=== PATIENT | female | born 1970 | race Caucasian/White ===

== ENCOUNTER 2017-05-09 17:47 | Inpatient (IN) ==
[2017-05-09] MEDS ORDERED: NS 1,000 ML IV PRN (18:36)
[2017-05-09 19:02] LABS: BILIRUBIN URINE NEGATIVE (NEGATIVE); BLOOD URINE NEGATIVE (NEGATIVE); CLARITY CLEAR (CLEAR); COLOR YELLOW; GLUCOSE URINE NEGATIVE (NEGATIVE); LEUKOCYTES URINE 1+ (NEGATIVE); NITRITE URINE NEGATIVE (NEGATIVE); PH URINE 6.5; PROTEIN URINE 1+(30 mg/dL) mg/dL (NEGATIVE); SP GRAVITY URINE 1.005; UROBILINOGEN URINE NORMAL
[2017-05-09 19:04] LABS: UR AMPHETAMINES QUAL NONE DETECTED (NONE DETECT); UR BARBITUATES QUAL NONE DETECTED (NONE DETECT); UR BENZODIAZEPIN QUAL NONE DETECTED (NONE DETECT); UR CANNABINOIDS QUAL NONE DETECTED (NONE DETECT); UR COCAINE QUAL NONE DETECTED (NONE DETECT); UR MDMA QUAL NONE DETECTED (NONE DETECT); UR METHADONE QUAL NONE DETECTED (NONE DETECT); UR METHAMPHETAMINE QUAL NONE DETECTED (NONE DETECT); UR OPIATES QUAL NONE DETECTED (NONE DETECT); UR OXYCODONE QUAL NONE DETECTED (NONE DETECT); UR PCP QUAL NONE DETECTED (NONE DETECT); UR TCA QUAL PRESUMPTIVE POSITIVE (NONE DETECT)
[2017-05-09 19:15] LABS: URINE SOURCE CLEAN CATCH
[2017-05-09 19:17] LABS: URINE CULTURE PL NEEDED? YES; URINE EPITHELIAL CELLS <10 /HPF (<10); URINE RBC <10 /HPF (<10)
[2017-05-09 19:17] LABS: MANUAL DIFF NEEDED? NO
[2017-05-09 19:21] LABS: BASO% 1.7 % (0.0-0.8); HEMATOCRIT 31.8 % (37.0-47.0); HEMOGLOBIN 10.2 g/dL (12.0-16.0); LYMPH# 0.97 X1000 (1.2-3.4); MCH 28.7 PG (27-31); MCHC 32.1 g/dL (33-37); MCV 89.3 FL (81-99); MONO# 0.18 X1000 (0.11-0.59); MONO% 5.2 % (1.7-9.3); MPV 8.6 FL (7.4-10.4); NEUT% 65.1 % (42.2-75.2); PLT 265 X1000 (130-400); RBC 3.56 XMIL (4.2-5.4)
[2017-05-09 19:32] LABS: ALBUMIN 3.7 g/dL (3.5-5.0); CALCIUM 7.9 mg/dL (8.8-10.2); POTASSIUM 3.2 mmol/L (3.5-5.1); TOTAL BILIRUBIN 0.4 mg/dL (0.20-1.00); TOTAL PROTEIN 6.4 g/dL (6.3-8.3)
--- NOTE | 2017-05-09 20:34 | EKG Report ---
Test Performed on : 05/09/2017 8:26:22 PM Test Reason : CP Blood Pressure : / mmHG Vent. Rate : 096 BPM Atrial Rate : 096 BPM P-R Int : 106 ms QRS Dur : 078 ms QT Int : 380 ms P-R-T Axes : 078 097 064 degrees QTc Int : 480 ms Sinus rhythm. with short RI Rightward axis Septal infarct , age undetermined Abnormal ECG When compared with ECG of 05-APR-2017 17:28, No significant change was found Unconfirmed Result
[2017-05-09 21:07] LABS: FREE T4 0.57 ng/dL (0.93-1.70)
[2017-05-09] MEDS ORDERED: SODIUM CHLORIDE 0.9% INJ ONE (21:56)
[2017-05-09] MEDS ORDERED: SYNTHROID IV ONE (21:56)
[2017-05-09] MEDS ORDERED: ROCEPHIN 1 GM/NS 1 GM/50 ML IVPB IV ONE (21:57)
[2017-05-09] MEDS ORDERED: POTASSIUM CHLORIDE 10 MEQ in LR 1,000 ML IV ONE (21:57)
--- NOTE | 2017-05-09 22:05 | PROVIDER DOCUMENTATION ---
This chart was entered by Connie Monae Scribe, acting as scribe for Roddy Haney MD. HPI-General Adult - General Chief Complaint: Unresponsive Stated Complaint: UNRESPONSIVE IN A CAR Time Seen by Provider: 05/09/17 18:18 Source: patient, family Unable to obtain history due to:: altered Allergies/Adverse Reactions: Patient Allergies Allergy/AdvReac Type Severity Reaction Status Date / Time ketorolac tromethamine * Allergy Mild ABDOMINAL Verified 04/12/17 13:44 [From Toradol] PAIN; WAS TOLD COULD CAUSE SEIZURES tramadol HCl * [From Ultram] Allergy Mild ABDOMINAL Verified 04/12/17 13:44 PAIN; WAS TOLD COULD CAUSE SEIZURES propoxyphene Allergy Unknown NAUSEA; Verified 04/12/17 13:44 WAS TOLD COULD CAUSE SEIZURES Home Medications: Home Medication List Medication Instructions Recorded Confirmed Last Taken Type Hydrocodone/APAP 7.5 mg/325 mg 1 each PO Q6H PRN PRN #20 tablet 08/31/16 Unknown Rx [[place]-7.5] Clonazepam 0.5 mg PO DAILY 04/12/17 04/26/17 Unknown History Alprazolam [Xanax] 0.5 mg PO BID #7 tablet 04/26/17 Unknown Rx - History of Present Illness -Gen Adult Nature of Presenting Problems: 46 year old F presents to the ED via EMS. PT was found unresponsive in a car. Unknown how long pt had been in the car. PT was given 4 mg of Narcan [employer] and awoke. PT is alert to verbal stemuli. Pt denies taking any drugs and denies drinking. Review of Systems - Adult - REVIEW OF SYSTEMS - ADULT ROS:: unobtainable per condition Constitutional: reports: no symptoms reported Eyes: reports: no symptoms reported Ears, Nose, Mouth & Throat: reports: no symptoms reported Cardiovascular: reports: no symptoms reported Respiratory: reports: no symptoms reported Gastrointestinal: reports: no symptoms reported Genitourinary: reports: no symptoms reported Musculoskeletal: reports: no symptoms reported Integumentary: reports: no symptoms reported Neurological: reports: no symptoms reported Psychiatric: reports: no symptoms reported Endocrine: reports: no symptoms reported Hematologic/Lymphatic: reports: no symptoms reported Allergic/Immunologic: reports: no symptoms reported All Other Systems: Reviewed and Negative Past History - Adult - PAST MEDICAL HISTORY-ADULT Review of Records: reports: Nursing Assessment Review, Medications Reviewed Major Childhood Illnesses: reports: denies history Cardiovascular: reports: arrhythmia Respiratory: reports: asthma Gastrointestinal: reports: ulcer Obstetrical/Gynecological: reports: denies history Genitourinary: reports: kidney stones Musculoskeletal: reports: denies history Neurological: reports: 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) Endocrine/Immune: reports: hypoglycemia, thyroid disorder, other (factor 12 ) Other Conditions: reports: denies history - PRIOR SURGERIES/PROCEDURES Surgical/Procedure History: reports: hysterectomy, , gastric bypass ( also perforated ulcer repair), other (kidney stones) - PRIOR HOSPITALIZATIONS Prior Hospitalizations: reports: none - IMMUNIZATION STATUS Childhood Immunizations: See Nurse Assessment Flu Vaccine: See Nurse Assessment - FAMILY HISTORY Family History: reviewed, not pertinent - SOCIAL HISTORY Smoking: non-smoker Substance Use: none/never Alcohol Use Frequency: occasionally Physical Exam-General - PHYSICAL EXAM-ADULT Initial Vital Signs Reviewed: Yes - CONSTITUTIONAL General Appearance: slow to respond, other (awakes with verbal stemuli) - RESPIRATORY Respiratory: lungs clear, normal breath sounds - CARDIOVASCULAR Cardiovascular: normal peripheral pulses, regular rate, rhythm, no edema - GASTROINTESTINAL (ABDOMEN) Abdominal Exam: normal bowel sounds, soft - SKIN Integumentary: normal color, normal turgor, warm/dry Progress - PLAN OF CARE/RESULTS Progress/Plan/Lab Results: Vital Signs - 8 hr 05/09/17 17:49 Pulse Rate 105 H Respiratory Rate 20 Blood Pressure 134/100 O2 Sat by Pulse Oximetry 96 Result Diagrams: 05/09/17 19:00 05/09/17 19:00 - EKG 1 Time of EKG reading by physician:: 20:26 EKG Read and Signed by:: Roddy Haney EKG Interpretation (*Must complete 3 of following elements*): Abnormal Rate: 96 Rhythm: sinus rhythm with short NM [place]: right QRS: poor R wave progression - CONSULTS/PCP/HOSPITALIST Notification #1 *Consult/PCP/Hospitalist*: Dr. Eduardo(hospitalist) Time Discussed: 21:53 Consult Disposition: Admit Departure - Departure Date of Disposition Decision: 05/09/17 Time of Disposition Decision: 22:00 DIAGNOSIS: Hypothyroidism, postablative, Suicidal ideation Disposition: ADMITTED INPATIENT 09 Certified Medical Emergency: Emergent Condition: Serious Referrals and Follow-Ups: None,PCP [Primary Care Provider] - - Critical Care Note This patient required my direct & personal management of CC.: No This chart was documented by the indicated scribe, (Connie Monae Scribe) and accurately reflects the services I performed and decisions made by me, Roddy Haney MD, as attested by the provider's signature.
[2017-05-09] MEDS ORDERED: MOTRIN ONE (23:06)
[2017-05-09] MEDS: MOTRIN PO PRN (23:20)
[2017-05-10] MEDS: ZOFRAN IV PRN ×5 (00:04→20:22)
[2017-05-10] MEDS ORDERED: MOTRIN ONE (04:01)
[2017-05-10] MEDS: MOTRIN PO PRN (04:32)
[2017-05-10] MEDS ORDERED: MOTRIN PO PRN (06:19)
[2017-05-10] MEDS: SYNTHROID PO SCH (08:38)
[2017-05-10] MEDS: NORCO-7.5 PO PRN ×3 (08:38→21:00)
[2017-05-10] MEDS: XANAX PO SCH ×2 (08:38→22:03)
--- NOTE | 2017-05-10 15:07 | HISTORY AND PHYSICAL ---
CHIEF COMPLAINT: Unresponsive in the car. HISTORY OF PRESENT ILLNESS: This is a 46-year-old female who presented to the emergency room via EMS after being found sitting in a car unresponsive. It is unknown how long the patient had been there. Apparently EMS gave the patient 4 mg of Narcan and she was awake and alert to verbal stimuli on arrival to the emergency room. She did deny at that time taking any drugs or drinking any alcohol, although her blood alcohol was noted to be 333 on admission, and 3 hours later it was 277. Drug screen was positive for tricyclics. Apparently, according to the chart, the patient's mother informed Dr. Haney that the patient wanted to kill herself. Therefore Dr. Haney recommended an evaluation from [facility]. At the time of my exam, Ms. De Souza is alert, she is oriented, she is cooperative. She does speak of suicide, although she does not voice that in fact she is suicidal. In talking with the patient, she does not remember getting into her car, nor quite some time. She does not remember getting into her car. The patient was admitted to ICU for further evaluation and treatment for her safety. PAST MEDICAL HISTORY: 1. Narcotic substance abuse. 2. Encephalopathy. 3. Hypothyroidism. 4. Prior drug overdose, taking medications that were not hers. 5. Factor XII bleeding disorder. 6. History of perforated ulcer. 7. Depression. PAST SURGICAL HISTORY: Cholecystectomy, , hysterectomy, tonsillectomy, gastric bypass, and repair of perforated ulcer. SOCIAL HISTORY: She denies tobacco use. She does have alcohol and illicit drug use. ALLERGIES: Toradol and tramadol and propoxyphene which cause nausea and abdominal pain. HOME MEDICATIONS: Synthroid 75 mcg daily. Xanax 1 mg 3 times a day. Doxepin 25 mg 3 times a day. REVIEW OF SYSTEMS: Discussed with patient with pertinent positive being depression. She denies chest pain, syncope, dizziness, shortness of breath, cough, fever chills, PND, orthopnea, nausea, vomiting, diarrhea, constipation, black or bloody vomitus, black or bloody stools, hematuria, dysuria, frequency, urgency. PHYSICAL EXAMINATION: GENERAL: This is a 46-year-old female who is sitting in the bed, in no distress. VITAL SIGNS: Blood pressure is 146/88 with a heart rate of 84, respirations are 19, temperature is 99.0 degrees oral with room air saturations of 99%-100%. HEENT: Head is normocephalic, atraumatic. Pupils equal, round, react to light. EOMs are intact. Sclerae nonicteric. Mucous membranes are moist. NECK: Supple. Trachea midline. CARDIOVASCULAR: Regular rate and rhythm. S1 and S2 appreciated. PULMONARY: Breath sounds are clear with no increased work of breathing noted. Chest does rise and fall symmetrically with respiration. GASTROINTESTINAL: Abdomen is soft, nontender, nondistended, with bowel sounds in all 4 quadrants. BACK: No CVAT. No spine tenderness. MUSCULOSKELETAL: Good range of motion of joints. EXTREMITIES: No clubbing, cyanosis, or edema. Calves are nontender and pulses are palpable x4. NEUROLOGIC: She is alert and oriented x3. DIAGNOSTICS: WBC is 3.4, with hemoglobin 10.2, hematocrit 31.8, platelets of 265,000. Sodium is 147, potassium 3.2, BUN 11, creatinine 1, with a glucose of 102. AST is 45, ALT 39, and alkaline phosphatase 125. TSH is 24.8, with a free T4 of 0.5. Urinalysis is essentially negative. Urine drug screen is positive for tricyclic, with a blood alcohol of 333. ASSESSMENT AND PLAN: 1. Unresponsive. 2. Alcohol use and abuse. 3. Hypothyroid. 4. Hypokalemia. 5. Elevated liver function tests. 6. Questionable suicidal ideation. PLAN: She is being admitted to ICU. We will continue with suicide precautions. We will continue with IV hydration. We will continue with her home medications as appropriate. Urine culture is pending. She was given a dose of Rocephin in the emergency room. We will continue this. If urine culture returns positive antibiotics may be changed as appropriate to results. We will continue with neuro checks. Once she is medically clear we will call [facility] for evaluation. Further treatment pending hospital course. Dictated by FÉLIX Ferreira for Holger Eduardo MD cc: FÉLIX Ferreira MD
[2017-05-10] MEDS: ROCEPHIN 1 GM/NS 1 GM/50 ML IVPB IV SCH (22:04)
[2017-05-11] MEDS: NORCO-7.5 PO PRN ×4 (04:32→23:37)
[2017-05-11 06:26] LABS: HEMATOCRIT 29.4 % (37.0-47.0); HEMOGLOBIN 9.1 g/dL (12.0-16.0); MCH 28.2 PG (27-31); MPV 9.5 FL (7.4-10.4); RBC 3.23 XMIL (4.2-5.4)
[2017-05-11] MEDS: SYNTHROID PO SCH (06:31)
[2017-05-11 07:01] LABS: AGAP 10; ALBUMIN 3.2 g/dL (3.5-5.0); ALKALINE PHOSPHATASE 131 U/L (32-104); BUN 10 mg/dL (8-22); CALCIUM 8.1 mg/dL (8.8-10.2); CHLORIDE 105 mmol/L (98-107); COSMO 281; GOT 187 U/L (10-30); GPT 69 U/L (10-36); MAGNESIUM 1.8 mg/dL (1.5-2.7); POTASSIUM 2.9 mmol/L (3.5-5.1); SODIUM 142 mmol/L (136-145); TCO2 27 mmol/L (25-35); TOTAL PROTEIN 5.5 g/dL (6.3-8.3)
[2017-05-11] MEDS: ZOFRAN IV PRN ×3 (07:28→17:27)
[2017-05-11] MEDS ORDERED: KLOR-CON PO ONE (08:23)
[2017-05-11] MEDS: XANAX PO SCH ×2 (08:43→21:05)
--- NOTE | 2017-05-11 10:11 | PROGRESS NOTE ---
DATE: 05/11/2017 SUBJECTIVE: Patient without any complaints. States that she is actually feeling better today than she has been. Denies any chest pain, palpitations. Denies any fevers or chills. OBJECTIVE: Vital Signs: Reviewed. Temperature 97 degrees, pulse 86, respiratory rate 18, BP 160/85, saturation 99% on room air. General: Patient is awake, alert. Currently she is in no respiratory distress. She is pleasant to talk with. Neck: Supple. CV: Regular rate. Chest: Clear. Abdomen: Soft. Extremities: Moves all extremities. ASSESSMENT: 1. Acute hepatitis. AST and ALT both are mildly elevated from her admission. I expect this is more of a delayed alcohol affect than anything. We will continue to follow and recheck in the a.m. They actually both are less than where she has been in the past. 2. Hypokalemia. Will replace with p.o. and recheck. 3. Hypothyroidism. Will continue the elevated dose of Synthroid and will recheck in the a.m. She certainly physically appears to feel better. 4. Chronic depression. 5. Chronic alcohol use and abuse. Patient is stable. She has no signs withdrawal. 6. Hypokalemia, resolved. 7. Urinary tract infection. We will continue Rocephin until lab is able to delineate what the infection is. PLAN: We will continue as noted above. Replace potassium. Recheck in the a.m. We will move her to the floor. Further orders as needed. Hopefully home. cc: Holger Eduardo MD
[2017-05-11] MEDS: ROCEPHIN 1 GM/NS 1 GM/50 ML IVPB IV SCH (21:05)
[2017-05-11] MEDS: LACTULOSE PO SCH (21:05)
[2017-05-12] MEDS: PRILOSEC PO SCH (06:08)
[2017-05-12] MEDS: SYNTHROID PO SCH (06:08)
[2017-05-12] MEDS: NORCO-7.5 PO PRN ×3 (06:10→20:42)
[2017-05-12 06:35] LABS: HEMATOCRIT 28.7 % (37.0-47.0); HEMOGLOBIN 8.9 g/dL (12.0-16.0); MCV 90.3 FL (81-99); MPV 10.2 FL (7.4-10.4); RBC 3.18 XMIL (4.2-5.4)
[2017-05-12 06:49] LABS: AGAP 10; ALBUMIN 3.4 g/dL (3.5-5.0); ALKALINE PHOSPHATASE 122 U/L (32-104); BUN 10 mg/dL (8-22); CHLORIDE 105 mmol/L (98-107); COSMO 280; GOT 89 U/L (10-30); GPT 59 U/L (10-36); MAGNESIUM 1.7 mg/dL (1.5-2.7); POTASSIUM 3.4 mmol/L (3.5-5.1); SODIUM 141 mmol/L (136-145); TCO2 26 mmol/L (25-35); TOTAL PROTEIN 5.6 g/dL (6.3-8.3)
[2017-05-12] MEDS: ZOFRAN IV PRN ×2 (07:16→13:37)
[2017-05-12] MEDS ORDERED: SYNTHROID PO SCH (07:30)
[2017-05-12] MEDS: LEVAQUIN PO SCH (10:27)
[2017-05-12] MEDS: LACTULOSE PO SCH ×2 (10:27→20:31)
[2017-05-12] MEDS: XANAX PO SCH ×2 (10:28→20:31)
--- NOTE | 2017-05-12 15:19 | PROGRESS NOTE ---
DATE: 05/12/2017 SUBJECTIVE: The patient is complaining of aching to her back and abdomen. She denies any nausea, vomiting, shortness of breath, or issues. OBJECTIVE: Vital Signs: Blood pressure is 156/90, with a heart rate of 90. Respirations are 20. Temperature is 98.4 degrees, with room air saturation of 100%. Cardiovascular: Regular rate and rhythm. S1, S2 appreciated. Pulmonary: Breath sounds are clear, with no increased work of breathing noted. Gastrointestinal: Abdomen is soft, nontender, nondistended, with bowel sounds in all 4 quadrants. Extremities: No clubbing, cyanosis, or edema. Calves nontender. Pulses are palpable x4. Neurologic: She is alert orient x3, with cranial nerves 2-12 grossly intact. LABORATORY STUDIES: WBC is 3.3, with hemoglobin 8.9, hematocrit 28.7, and platelets of 162,000. Sodium is 141, potassium 3.4, BUN 10, creatinine 0.6, with blood sugars ranging from. 68-90. TSH is 42.69. ASSESSMENT AND PLAN: 1. Acute hepatitis. AST and ALT, as well as alkaline phosphatase, are decreasing. This is most likely a delayed alcohol effect. We will continue to follow and recheck her labs. These are actually less than they have been in the past. 2. Hypokalemia. Will trend labs and replete as appropriate. 3. Hypothyroidism. TSH has increased to 42.69. We will recheck this level and treat as appropriate with recheck level. 4. Chronic depression. Aware. 5. Chronic alcohol use and abuse. She is stable. She is showing no signs of withdrawal. 6. Urinary tract infection of Klebsiella, which is Levaquin susceptible, which we will continue. 7. Further orders as needed. Dictated by FÉLIX Ferreira for Holger Eduardo MD cc: FÉLIX Ferreira MD
[2017-05-13] MEDS: ZOFRAN IV PRN ×2 (01:53→08:18)
[2017-05-13] MEDS: NORCO-7.5 PO PRN ×2 (03:17→12:42)
[2017-05-13] MEDS: PRILOSEC PO SCH (06:13)
[2017-05-13 06:30] LABS: AGAP 9; ALBUMIN 3.3 g/dL (3.5-5.0); ALKALINE PHOSPHATASE 102 U/L (32-104); BUN 9 mg/dL (8-22); CALCIUM 7.8 mg/dL (8.8-10.2); CHLORIDE 106 mmol/L (98-107); COSMO 277; GOT 39 U/L (10-30); GPT 38 U/L (10-36); POTASSIUM 3.6 mmol/L (3.5-5.1); SODIUM 140 mmol/L (136-145); TCO2 26 mmol/L (25-35); TOTAL PROTEIN 5.4 g/dL (6.3-8.3)
[2017-05-13] MEDS: XANAX PO SCH (08:17)
[2017-05-13] MEDS: LEVAQUIN PO SCH (08:17)
[2017-05-13] MEDS: LACTULOSE PO SCH (08:25)
--- NOTE | 2017-05-13 09:28 | Diag Imaging Result Doc PS360 ---
EXAM: ABDOMEN/PELVIS W/PO AND IV CON INDICATION: Abd pain throughout TECHNIQUE: Dose reduction protocol was used. COMPARISON: 04/12/2017 FINDINGS: There has been a previous cholecystectomy. There is stable minimal intrahepatic and extrahepatic biliary dilatation that is assumed to be compensatory related to postcholecystectomy status. The liver is grossly unremarkable, otherwise. The spleen, adrenal glands, and pancreas are unremarkable. There are surgical staple lines associated with the stomach suggesting prior gastric bypass. There is bilateral nonobstructing nephrolithiasis. There is no hydronephrosis. The urinary bladder is partially distended and is grossly unremarkable, otherwise. The appendix is normal. There is trace nonspecific free fluid layering in the pelvis on the right, usually physiologic. There are a few small bowel loops that exhibit mild wall thickening in the lower abdomen and pelvis. This could represent mild infectious or inflammatory enteritis. There is no evidence of bowel obstruction. The remainder of the GI tract is grossly unremarkable. IMPRESSION: 1.Suggestion of minimal small bowel wall thickening at the lower abdomen and pelvis. Consider mild infectious or inflammatory enteritis. 2.Other incidental/nonacute findings detailed above.0 Electronically signed by Wale Castellano 05/13/2017 9:26 AM
[2017-05-13] MEDS ORDERED: [UNRECOGNIZED DRUG - OTHER] PR ONE (10:14)
[2017-05-13 15:16] VITALS: BP 145/85
--- NOTE | 2017-05-14 07:16 | DISCHARGE SUMMARY ---
ADMISSION DATE: 05/09/2017 DISCHARGE DATE: 05/13/2017 DIAGNOSES: 1. Unresponsive, resolved. 2. Alcohol use and abuse, aware. 3. Hypothyroid. 4. Hypokalemia, resolved. 5. Elevated liver function tests, resolved. 6. Chronic depression, aware. 7. Klebsiella urinary tract infection, currently on Levaquin. DIAGNOSTICS: On 05/12/2017, CT scan of the abdomen and pelvis revealed a suggestion of minimal small bowel wall thickening at the lower abdomen and pelvis. Consider mild infectious or inflammatory enteritis. She was also found to have some small nonobstructing nephrolithiasis bilateral. MICROBIOLOGY: Her culture revealed Klebsiella pneumoniae. HOSPITAL COURSE: Ms. De Souza presented to the emergency room unresponsive. She did wake after 4 mg of Narcan were given. She was found have a blood alcohol of 333 on admission. She was placed in the ICU and monitored. Thankfully, she improved and was able to move out to the floor. Since being on the floor, she has been active in her room, although she would not get out of the room in the [place]. She has complained of intermittent abdominal pain with no nausea, vomiting, white count, or fever. CT scan of the abdomen and pelvis was performed which revealed a suggestion of infectious or inflammatory enteritis. As she has no signs of infection, it is very likely this is inflammatory as she did give herself 6 enemas prior to coming to the hospital. She has tolerated a regular diet over the last 24 hours with no difficulty. DISCHARGE PHYSICAL EXAMINATION: Cardiovascular: Regular rate and rhythm. S1 and S2 are appreciated. Pulmonary: Breath sounds are clear. No increased work of breathing noted. Gastrointestinal: Abdomen is soft, nondistended. It is tender around the suprapubic area with bowel sounds in all 4 quadrants. Neurological: She is alert and oriented x3 with cranial nerves 2-12 grossly intact. DISCHARGE MEDICATIONS: 1. Levaquin 500 mg daily for 7 days. 2. Synthroid 100 mcg tablets with 2 tablets daily at 7 o'clock. 3. Prilosec 40 mg daily. 4. Xanax 0.5 mg and [place] 7.5. She can continue as needed although these are prior prescriptions. We have given no narcotics on discharge. FOLLOWUP: She needs to follow up with her primary care physician in the next 2-4 weeks. At that time, she had to have a TSH drawn. She has been instructed in this in writing as well as verbally per myself, Dr. Eduardo, and the RN. She is to follow up with Dr. Elias in gastroenterology for a GI workup and Dr. Shaffer in urology. She has been given the numbers to call to schedule appointments. She is aware and agrees with this. DISPOSITION: She is being discharged home in stable condition with family members. TIME SPENT: This is a greater than 30 minute discharge. Dictated by FÉLIX Ferreira for Holger Eduardo MD cc: FÉLIX Ferreira MD
== END 2017-05-13 15:40 | disposition home or self-care (01) ==
LOC: P.ED 17:47 → P.ICU 17:47 → P.MEDSURG 05-11 09:22
PROVIDERS: ATTEND Family Medicine

== ENCOUNTER 2019-03-21 18:20 | Inpatient (IN) ==
[~2019-03-21 18:20] MED LIST: NARCAN IV ONE; NS 1,000 ML IV ONE; ZOFRAN IV ONE
--- NOTE | 2019-03-21 18:36 | PROVIDER DOCUMENTATION ---
[id number] Abuse/Overdose - General Chief Complaint: Overdose Stated Complaint: OVERDOSE Time Seen by Provider: 03/21/19 18:25 Source: patient Allergies/Adverse Reactions: Allergies Allergy/AdvReac Type Severity Reaction Status Date / Time ketorolac tromethamine * Allergy Mild ABDOMINAL Verified 09/01/18 08:18 [From Toradol] PAIN; WAS TOLD COULD CAUSE SEIZURES tramadol HCl * [From Ultram] Allergy Mild ABDOMINAL Verified 09/01/18 08:18 PAIN; WAS TOLD COULD CAUSE SEIZURES propoxyphene Allergy Unknown NAUSEA; Verified 09/01/18 08:18 WAS TOLD COULD CAUSE SEIZURES Home Medications: Home Medication List Medication Instructions Recorded Confirmed Last Taken Type Alprazolam 1 tab PO TID PRN 05/31/18 03/22/19 06/04/18 History Levothyroxine Sodium [Synthroid] 50 mcg PO DAILY #30 tab 06/02/18 03/22/19 Unknown Rx Levothyroxine Sodium [Synthroid] 200 microgm PO DAILY #30 tab 06/02/18 03/22/19 06/04/18 Rx Acarbose 25 mg PO TID 03/22/19 03/22/19 Unknown History Cetirizine HCl [Zyrtec] 10 mg PO HS 03/22/19 03/22/19 Unknown History Dextroamphetamine/Amphetamine 30 mg PO BID 03/22/19 03/22/19 Unknown History [Adderall 30 mg Tablet] Nitrofurantoin [place]/Macrocryst 100 mg PO DAILY 03/22/19 03/22/19 Unknown History [Macrobid] Omeprazole 40 mg PO DAILY 03/22/19 03/22/19 Unknown History Zolpidem [Ambien] 5 mg PO HS 03/22/19 03/22/19 Unknown History - History of Present Illness-Drug/Alcohol Nature of Presenting Problem: 48 YOF PRESENTS AFTER TAKING UNKNOWN AMOUNT OF oxycodone. EMS GAVE NARCAN AND PT HAD APPROPRIATE RESPONSE. SHE DENIES THOUGHTS OF HURTING SELF OR HI, SHE REPORTS SHE TOOK THE MEDICATION DUE TO PAIN. This episode of drinking or use began:: just prior to arrival Severity: reports: moderate Situational problems related to:: reports: other (PAIN) Psychiatric Complaints: reports: denies symptoms Associated Symptoms: reports: denies symptoms Any injuries associated with this episode of intoxication?: No Similar Symptoms Previously?: No Recently seen or treated by another doctor?: No - Overdose Intentional drug overdose?: No (TOOK MEDICATION FOR "PAIN" NOT TO HURT SELF ) List substance(s) ingested.: PERCOCET Clinician's estimation of suicide risk?: low risk Review of Systems - Adult - REVIEW OF SYSTEMS - ADULT Constitutional: reports: no symptoms reported. denies: see HPI, chills, fever, fatique, night sweats, weight gain, weight loss, other Eyes: reports: no symptoms reported. denies: see HPI, discharge, dry eyes, decreased vision, blurred vision, double vision, eye pain, redness, other Ears, Nose, Mouth & Throat: reports: no symptoms reported. denies: see HPI, ear discharge, ear pain, hearing loss, tinnitus, epistaxis, sinus problem, nose pain, loose teeth, mouth/dental pain, mouth swelling, hoarseness, throat pain, throat swelling, other Cardiovascular: reports: no symptoms reported. denies: see HPI, chest pain, edema, heart murmur, irregular heart rate, orthopnea, palpitations, poor circulation, PND, syncope, other Respiratory: reports: no symptoms reported. denies: see HPI, chronic cough, cough, dyspnea on exertion, excessive sputum production, hemoptysis, pleurisy, shortness of breath, wheezing, other Gastrointestinal: reports: nausea, vomiting (AFTER NARCAN). denies: no symptoms reported, see HPI, abdominal pain, hematemesis, constipation, diarrhea, difficulty swallowing, frequent heartburn, poor appetite, rectal bleeding, other Genitourinary: reports: dysuria, flank pain, frequent UTI's, other (CURRENTLY ON MACROBID FOR UTI) Musculoskeletal: reports: no symptoms reported. denies: see HPI, bone pain, back pain, frequent leg cramps, joint pain, joint swelling, muscle aches, muscle weakness, neck pain, other Integumentary: reports: no symptoms reported. denies: see HPI, hives, hair loss, itching, mole changes, nail changes, rash, skin sores/ulcer, skin thickening, other Neurological: reports: other (DROWSINESS). denies: no symptoms reported, see HPI, ataxia, dizziness/vertigo, headache/migraines, loss of balance, numbness, paresthesia, seizure, slurred speech, syncope, tremors Psychiatric: reports: no symptoms reported. denies: see HPI, anxiety, anti- depressant use, alcohol/drug dependence, depression, emotional problems, insomnia, panic attacks, suicidal thoughts, other Endocrine: reports: no symptoms reported. denies: see HPI, change in skin pigment, excessive sweating, goiter, cold intolerance, heat intolerance, increased hunger, increased thirst, polyuria, other Hematologic/Lymphatic: reports: no symptoms reported. denies: see HPI, blood clots, easy bruising, low blood count, lymphedema, prolonged bleeding, swollen lymph nodes, transfusions, other Allergic/Immunologic: reports: no symptoms reported. denies: see HPI, allergic reactions, allergic rhinitis, asthma, eczema, food allergy, frequent infections, hay fever, hives, positive PPD, urticaria, other Past History - Adult - PAST MEDICAL HISTORY-ADULT Review of Records: reports: Old Records Reviewed, Social history reviewed & non-contributory. Major Childhood Illnesses: reports: denies history Cardiovascular: reports: arrhythmia Respiratory: reports: asthma Gastrointestinal: reports: ulcer Obstetrical/Gynecological: reports: denies history Genitourinary: reports: kidney stones Musculoskeletal: reports: denies history Neurological: reports: headaches/migraines, Seizures/Epilepsy (if sugar gets too low) Psychiatric: reports: denies history Endocrine/Immune: reports: Diabetes, hypoglycemia, thyroid disorder Other Conditions: reports: denies history - PRIOR SURGERIES/PROCEDURES Surgical/Procedure History: reports: cholecystectomy, hysterectomy, , tonsillectomy, gastric bypass, other (kidney stones) - PRIOR HOSPITALIZATIONS Prior Hospitalizations: reports: none - IMMUNIZATION STATUS Childhood Immunizations: See Nurse Assessment Flu Vaccine: See Nurse Assessment - FAMILY HISTORY Family History: reviewed, not pertinent Physical Exam-General - PHYSICAL EXAM-ADULT Initial Vital Signs Reviewed: Yes - CONSTITUTIONAL General Appearance: appears well, alert, no apparent distress - EYES Eyes: PERRL/EOMI - HEAD, EARS, NOSE, MOUTH & THROAT HENMT: normocephalic/atraumatic, moist mucous membranes, normal ENT inspection - NECK Neck: non-tender, full range of motion - RESPIRATORY Respiratory: chest non-tender, lungs clear, normal breath sounds - CARDIOVASCULAR Cardiovascular: normal peripheral pulses, regular rate, rhythm, no edema, no gallop, no JVD - GASTROINTESTINAL (ABDOMEN) Abdominal Exam: normal bowel sounds, non tender, soft - LYMPHATIC Lymphatic: no adenopathy - MUSCULOSKELETAL Back Exam: normal inspection, no CVA tenderness Extremity: normal range of motion, non-tender, normal gait - SKIN Integumentary: normal color, normal turgor, warm/dry - NEUROLOGIC Neurologic: grossly normal - PSYCHIATRIC Psych/Mental Status: normal mood/affect, oriented x 3 Progress - PLAN OF CARE/RESULTS Progress/Plan/Lab Results: Laboratory Results - last 24 hr 03/21/19 03/21/19 03/21/19 18:35 18:35 20:45 WBC RBC Hgb Hct MCV MCH MCHC RDW Std Deviation Plt Count MPV Immature Gran % (Auto) Neut % (Auto) Lymph % (Auto) [place] % (Auto) Eos % (Auto) Baso % (Auto) Immature Gran # (Auto) Neut # (Auto) Lymph # (Auto) [place] # (Auto) Eos # (Auto) Baso # (Auto) Sodium Potassium Chloride Carbon Dioxide Anion Gap BUN Creatinine Estimated GFR/1.73 m2 BUN/Creatinine Ratio Glucose Calculated Osmolality Calcium Total Bilirubin AST ALT Alkaline Phosphatase Total Protein Albumin Globulin Albumin/Globulin Ratio Urine Source CLEAN CATCH Urine Color ABEL Urine Clarity CLEAR Urine pH 6.5 Ur Specific [place] 1.020 Urine Protein 2+(100 mg/dL) A Urine Ketones 1+(Small) A Urine Blood NEGATIVE Urine Nitrite POSITIVE A Urine Bilirubin 1+ A Urine Urobilinogen 4 Urine Microscopic RBC <10 Urine WBC 1+ A Urine Microscopic WBC <10 Ur Epithelial Cells <10 Urine Bacteria NEGATIVE Urine Glucose NEGATIVE Urine Opiates Screen NONE DETECTED Ur Oxycodone Screen PRESUMPTIVE POSITIVE A Urine Methadone Screen NONE DETECTED U Propoxyphene Qual NONE DETECTED Acetaminophen Ur Barbituates Screen NONE DETECTED Ur Tricyclics Screen NONE DETECTED Ur Phencyclidine Scrn NONE DETECTED Ur Amphetamines Screen PRESUMPTIVE POSITIVE A U Methamphetamines Scrn NONE DETECTED U Benzodiazepines Scrn PRESUMPTIVE POSITIVE A Urine Cocaine Screen NONE DETECTED U Cannabinoids Screen NONE DETECTED Plasma/Serum Ethyl Alc 03/21/19 03/21/19 20:45 20:45 WBC 5.45 RBC 3.92 L Hgb 11.7 L Hct 35.8 L MCV 91.3 MCH 29.8 MCHC 32.7 L RDW Std Deviation 12.4 Plt Count 163 MPV 11.2 H Immature Gran % (Auto) 0.0 Neut % (Auto) 83.1 H Lymph % (Auto) 8.6 L [place] % (Auto) 8.1 Eos % (Auto) 0.0 Baso % (Auto) 0.2 Immature Gran # (Auto) 0.00 Neut # (Auto) 4.53 Lymph # (Auto) 0.47 L [place] # (Auto) 0.44 Eos # (Auto) 0.00 Baso # (Auto) 0.01 Sodium 146 H Potassium 4.0 Chloride 105 Carbon Dioxide 30 Anion Gap 12 BUN 9 Creatinine 0.5 Estimated GFR/1.73 m2 > 60 BUN/Creatinine Ratio 18 Glucose 121 H Calculated Osmolality 290 Calcium 9.1 Total Bilirubin 0.50 AST 18 ALT 21 Alkaline Phosphatase 113 H Total Protein 6.7 Albumin 4.2 Globulin 3.0 Albumin/Globulin Ratio 2.0 Urine Source Urine Color Urine Clarity Urine pH Ur Specific [place] Urine Protein Urine Ketones Urine Blood Urine Nitrite Urine Bilirubin Urine Urobilinogen Urine Microscopic RBC Urine WBC Urine Microscopic WBC Ur Epithelial Cells Urine Bacteria Urine Glucose Urine Opiates Screen Ur Oxycodone Screen Urine Methadone Screen U Propoxyphene Qual Acetaminophen < 1.2 L Ur Barbituates Screen Ur Tricyclics Screen Ur Phencyclidine Scrn Ur Amphetamines Screen U Methamphetamines Scrn U Benzodiazepines Scrn Urine Cocaine Screen U Cannabinoids Screen Plasma/Serum Ethyl Alc Orders Category Date Time Status Admit - [facility] Routine AdmDCTranf 03/21/19 23:22 Active [facility] Insertion ORDERED Care 03/21/19 18:33 Completed Saline Loc NOW Care 03/21/19 18:[address] HEAD W/O CONTRAST [CT] Stat Exams 03/21/19 22:06 Completed cxr [CHEST-2 VIEWS] [RAD] Stat Exams 03/21/19 18:39 Completed ACETAMINOPHEN [TDM] Stat Lab 03/21/19 20:45 Completed ALCOHOL BLOOD Stat Lab 03/21/19 20:45 Completed CBC WITH ELECTRONIC DIFF [HEME] Stat Lab 03/21/19 20:45 Completed COMPREHENSIVE METABOLIC PANEL [CHEM] Stat Lab 03/21/19 20:45 Completed UA NIMS W/REFLEX CULT PL [URINALYSIS] Stat Lab 03/21/19 18:35 Completed URINE CULTURE [RM] Routine Lab 03/21/19 20:27 Received URINE DRUG SCREEN PL Stat Lab 03/21/19 18:35 Completed 0.9% Sodium Chloride Inj [Ns] 1,000 ml Med 03/21/19 23:22 Discontinued IV 100 mls/hr 0.9% Sodium Chloride Inj [Ns] 1,000 ml Med 03/21/19 18:15 Discontinued IV 150 mls/hr Naloxone [Narcan] Med 03/21/19 18:15 Discontinued 2 mg IV NOW ONE Ondansetron [Zofran] Med 03/21/19 18:15 Discontinued 4 mg IV NOW ONE EKG [EKG] Stat Ther 03/21/19 18:31 Draft Transfer/Admit Order [TRANSFER] Routine Transfer 03/21/19 23:24 Completed Result Diagrams: 03/21/19 20:45 03/21/19 20:45 - CT/MRI 1 CT Study: Head Impression: Normal - CONSULTS/PCP/HOSPITALIST Notification #1 *Consult/PCP/Hospitalist*: dr rodríguez Time Discussed: 23:21 Reason/Comments: admit to icu Consult Disposition: Admit Departure - Departure Date of Disposition Decision: 03/21/19 Time of Disposition Decision: 23:21 DIAGNOSIS: Overdose, Polysubstance abuse Disposition: ADMITTED INPATIENT 09 Certified Medical Emergency: Emergent Condition: Stable - Critical Care Note This patient required my direct & personal management of CC.: No Attestation - Physician/ SEA Attestation Patient care was provided by Advanced Practice Provider:: Yes Advanced Practice Provider:: Kateryna Gonzalez Advanced Practice Provider documentation review:: The Mid-level provider documentation, treatment plan and medical decision making was reviewed by the physician who agrees with all treatment and medical decision making by the ML. The physician spent face to face time with patient:: No Advanced Practice Provider documentation review:: Supervising physician onsite and consulted in the evaluation and care of this patient. The physician did not have a face to face encounter with the patient.
[2019-03-21 19:54] LABS: UR AMPHETAMINES QUAL PRESUMPTIVE POSITIVE (NONE DETECT); UR BARBITUATES QUAL NONE DETECTED (NONE DETECT); UR BENZODIAZEPIN QUAL PRESUMPTIVE POSITIVE (NONE DETECT); UR CANNABINOIDS QUAL NONE DETECTED (NONE DETECT); UR COCAINE QUAL NONE DETECTED (NONE DETECT); UR METHADONE QUAL NONE DETECTED (NONE DETECT); UR METHAMPHETAMINE QUAL NONE DETECTED (NONE DETECT); UR OPIATES QUAL NONE DETECTED (NONE DETECT); UR OXYCODONE QUAL PRESUMPTIVE POSITIVE (NONE DETECT); UR PCP QUAL NONE DETECTED (NONE DETECT); UR PROPOXYPHENE QUAL NONE DETECTED (NONE DETECT); UR TCA QUAL NONE DETECTED (NONE DETECT)
[2019-03-21 20:25] LABS: BILIRUBIN URINE 1+ (NEGATIVE); BLOOD URINE NEGATIVE (NEGATIVE); CLARITY CLEAR (CLEAR); COLOR AMBER; GLUCOSE URINE NEGATIVE (NEGATIVE); KETONE URINE 1+(Small) mg/dL (NEGATIVE); LEUKOCYTES URINE 1+ (NEGATIVE); NITRITE URINE POSITIVE (NEGATIVE); PH URINE 6.5; PROTEIN URINE 2+(100 mg/dL) mg/dL (NEGATIVE); UROBILINOGEN URINE 4 mg/dL
[2019-03-21 20:27] LABS: URINE BACTERIA NEGATIVE /HFP; URINE EPITHELIAL CELLS <10 /HPF (<10); URINE RBC <10 /HPF (<10); URINE SOURCE CLEAN CATCH; URINE WBC <10 /HPF (<10)
[2019-03-21 20:56] LABS: BASO# 0.01 X1000 (0.0-0.2); BASO% 0.2 % (0.0-0.8); HEMATOCRIT 35.8 % (37.0-47.0); HEMOGLOBIN 11.7 g/dL (12.0-16.0); LYMPH# 0.47 X1000 (1.2-3.4); LYMPH% 8.6 % (20.5-51.1); MCH 29.8 PG (27-31); MCHC 32.7 g/dL (33-37); MCV 91.3 FL (81-99); MONO# 0.44 X1000 (0.11-0.59); MONO% 8.1 % (1.7-9.3); MPV 11.2 FL (7.4-10.4); NEUT# 4.53 X1000 (1.4-6.5); NEUT% 83.1 % (42.2-75.2); PLT 163 X1000 (130-400); RBC 3.92 XMIL (4.2-5.4); RDW 12.4 % (11.5-14.5); WBC 5.45 X1000 (4.8-10.8)
[2019-03-21 21:12] LABS: ACETAMINOPHEN < 1.2 ug/mL (10-30); AGAP 12; ALBUMIN 4.2 g/dL (3.5-5.0); ALKALINE PHOSPHATASE 113 U/L (32-104); BUN 9 mg/dL (8-22); CALCIUM 9.1 mg/dL (8.8-10.2); CHLORIDE 105 mmol/L (98-107); COSMO 290; CREATININE 0.5 mg/dL (0.5-0.9); ESTIMATED GFR > 60; GLUCOSE 121 mg/dL (70-104); GOT 18 U/L (10-30); GPT 21 U/L (10-36); SODIUM 146 mmol/L (136-145); TCO2 30 mmol/L (25-35); TOTAL PROTEIN 6.7 g/dL (6.3-8.3)
--- NOTE | 2019-03-21 21:21 | Diag Imaging Result Doc PS360 ---
CHEST-2 VIEWS - 03/21/2019 INDICATION: OD, VOMITING COMPARISON: 05/29/2018 FINDINGS: The lungs are clear. Heart size is normal. No pneumothorax or pleural effusion. IMPRESSION: Negative exam. Electronically signed by Trae Ford 03/21/2019 9:19 PM
--- NOTE | 2019-03-21 21:46 | ED EKG INTERP ---
This chart was entered by Alondra Castellano Scribe, acting as scribe for Rose Muniz MD. EKG Interpretation - EKG Time of EKG reading by physician:: 20:41 EKG Read and Signed by:: Rose Muniz EKG Interpretation (*Must complete 3 of following elements*): Normal Rate: 97 Rhythm: NSR [place]: normal QRS: normal [place] Interval: normal ST Wave: normal Attestation - Physician/ SEA Attestation Patient care was provided by Advanced Practice Provider:: Yes Advanced Practice Provider:: Kateryna Gonzalez Advanced Practice Provider documentation review:: The Mid-level provider documentation, treatment plan and medical decision making was reviewed by the physician who agrees with all treatment and medical decision making by the P. The physician spent face to face time with patient:: No Advanced Practice Provider documentation review:: Supervising physician onsite and consulted in the evaluation and care of this patient. The physician did not have a face to face encounter with the patient. This chart was documented by the indicated scribe, (Alondra Castellano Scribe) and accurately reflects the services I performed and decisions made by Flavio doan Carisa L., MD, as attested by the provider's signature.
[2019-03-21] MEDS ORDERED: NS 1,000 ML IV ONE (23:22)
--- NOTE | 2019-03-22 06:38 | Diag Imaging Result Doc PS360 ---
CT HEAD W/O CONTRAST - 03/21/2019 INDICATION: OVERDOSE-AMS COMPARISON: 05/29/2018 FINDINGS: The ventricles and sulci are normal in size and contour. No intracranial mass or hemorrhage. The skull is intact. The sinuses mastoids and middle ears are clear. IMPRESSION: Negative exam. This exam was performed using automated exposure control, adjustment of mA or kV according to patient size, and/or use of iterative reconstruction technique Electronically signed by Trae Ford 03/22/2019 6:36 AM
[2019-03-22] MEDS: ROCEPHIN 1 GM in NS 50 ML IV SCH (10:49)
--- NOTE | 2019-03-22 11:32 | EKG Report ---
Test Performed on : 03/21/2019 8:32:58 PM Test Reason : OVERDOSE Blood Pressure : / mmHG Vent. Rate : 097 BPM Atrial Rate : 097 BPM P-R Int : 120 ms QRS Dur : 082 ms QT Int : 358 ms P-R-T Axes : 060 029 046 degrees QTc Int : 454 ms Normal sinus rhythm. Normal ECG When compared with ECG of 29-MAY-2018 17:03, No significant change was found Unconfirmed Result
--- NOTE | 2019-03-22 12:18 | HISTORY AND PHYSICAL ---
CHIEF COMPLAINT: Drug overdose. HISTORY OF PRESENTING ILLNESS: This is a 48-year-old female who presents to [facility] ER via EMS after taking an unknown amount of oxycodone. States that this was not an attempt to hurt herself or that she took the pain medicine due to pain. She states that she saw Dr. Damon, her urologist last week, and was diagnosed with a kidney stone and urinary tract infection and was not given any pain medication, but was placed on Macrobid 100 mg p.o. b.i.d. for a week and then is to take Macrobid daily for 30 days. She is supposed to follow up with him on the of this month, she states. I asked her where she got the oxycodone. She states she got them from a friend and states that she did not think she took them all at once, but she was hurting so bad in her back from the kidney stone that she states she may have taken more than prescribed. She again reiterates that this was not a suicide attempt, but instead was an attempt to get her pain under control. She is noted to be alert and awake this morning, answering all questions appropriately and eating breakfast. Her urinalysis does show positive nitrites, 1+ white blood cells, but no bacteria. She was initially admitted to the intensive care unit for further evaluation and treatment. PAST MEDICAL HISTORY: 1. Migraines. 2. Seizures. 3. Diabetes. 4. Recurrent hypoglycemia. 5. Hypothyroidism. PAST SURGICAL HISTORY: 1. Cholecystectomy. 2. Hysterectomy. 3. . 4. Tonsillectomy. 5. Gastric bypass. 6. Recurrent renal stones. FAMILY HISTORY: Reviewed and noncontributory. SOCIAL HISTORY: She is not reported to smoke or drink. Her urine drug screen was presumptive positive for oxycodone, amphetamines and benzodiazepines, all of which she does not have a current prescription for. ALLERGIES: 1. Ketoralac. 2. Tramadol. 3. Propoxyphene. HOME MEDICATIONS: We need to obtain a current list, reconcile, review and restart as appropriate. We will place an order for nursing to update and confirm home medications. LABORATORY DATA: White blood cell count of 5.45, hemoglobin 11.7, hematocrit 35.8, platelets 163,000. Sodium 146, potassium 4, chloride 105, CO2 30, BUN of 9, creatinine 0.5, glucose 121. Urinalysis with positive nitrites, 1+ white blood cells, negative bacteria. Urine drug screen is presumptive positive for oxycodone amphetamines and benzodiazepine. Acetaminophen level less than 1.2. Serum plasma alcohol level showed none detected. A CT of the head was negative. Chest x- ray showed a negative exam. EKG: Normal sinus rhythm at 97. REVIEW OF SYSTEMS: She denied any fever, chills, blurred vision, dizziness, chest pain, coughing, shortness of breath. She was having low back pain from her kidney stone. She denied any nausea, vomiting, constipation, diarrhea, burning or hurting with urination. PHYSICAL EXAMINATION: VITAL SIGNS: On arrival, she had a pulse of 134, respirations 12, blood pressure 170/113, and was saturating 97% on room air. Currently, her blood pressure is 111/56, saturating 94% on room air. GENERAL: This is a 48-year-old female who is lying in the bed and answers questions appropriately. HEENT: Normocephalic, atraumatic. Normal ENT inspection. Oropharynx and nares are clear. EYES: Pupils are equal, round, reactive to light and accommodation. Extraocular movements are intact. NECK: Normal inspection. Normal range of motion. LUNGS: Clear to auscultation bilaterally with equal lung expansion and chest wall movement. HEART: With regular rate and rhythm. No murmurs, rubs, or gallops. ABDOMEN: Soft, nontender, nondistended. Bowel sounds are present x4 quadrants. MUSCULOSKELETAL: She has 5/5 strength x4 extremities. NEUROLOGICAL: The cranial nerves 2-12 are grossly intact. ASSESSMENT: 1. Drug overdose, unintentional for suicidal ideation. 2. Urinary tract infection with known kidney stone per her urologist. 3. Polysubstance abuse. 4. Diabetes type 2. PLAN: She was initially admitted to the intensive care unit, placed on a regular diet. Urine culture is pending. She was placed on normal saline at 150 mL an hour and then after her first L of fluid, she was dropped down to 100 mL an hour. She is going to receive Rocephin 1 gram IV, and she will most likely be discharged home later this afternoon after seen by attending. We do need to update and confirm home medications per Nursing. Further orders after seen by attending. Dictated by FÉLIX White for Luis Rodriguez MD Addendum: Patient seen and examined by myself. Agree with FÉLIX note. It reflects my assessment and plan. Patient is admitted to hospital for drug overdose. Will keep her in the unit until she is more alert and once that happened will discharge her. cc: FÉLIX White MD [facility]
[2019-03-22] MEDS ORDERED: ZOFRAN ODT PO PRN (14:03)
[2019-03-22] MEDS ORDERED: ZOFRAN IV PRN (14:03)
[2019-03-22] MEDS ORDERED: TYLENOL PO PRN (14:03)
[2019-03-22] MEDS ORDERED: BENTYL PO PRN (14:03)
[2019-03-22] MEDS ORDERED: IMODIUM PO PRN (14:03)
[2019-03-22] MEDS ORDERED: SENOKOT PO PRN (14:03)
[2019-03-22] MEDS ORDERED: D5W 1,000 ML IV PRN (14:03)
[2019-03-22] MEDS ORDERED: LIBRIUM PO PRN (14:03)
[2019-03-22] MEDS ORDERED: MOTRIN PO PRN (14:03)
[2019-03-22] MEDS ORDERED: DESYREL PO PRN (14:03)
[2019-03-22] MEDS ORDERED: PHENOBARBITAL IV PRN (14:03)
[2019-03-22] MEDS ORDERED: MAALOX PLUS LIQUID PO PRN (14:03)
[2019-03-22] MEDS ORDERED: ROBAXIN PO PRN (14:03)
[2019-03-22] MEDS ORDERED: SEROQUEL PO PRN (14:03)
[2019-03-22] MEDS ORDERED: SINEMET 25/100 PO PRN (14:03)
[2019-03-22] MEDS ORDERED: DULCOLAX PR PRN (14:03)
[2019-03-22] MEDS ORDERED: NICODERM PATCH TD PRN (14:03)
[2019-03-22] MEDS ORDERED: ATARAX PO PRN (14:03)
[2019-03-22] MEDS ORDERED: LIBRIUM PO SCH (14:15)
[2019-03-22] MEDS: SYNTHROID PO SCH ×2 (15:33→15:34)
[2019-03-22] MEDS: LIBRIUM PO SCH ×2 (15:48→22:32)
[2019-03-22] MEDS: PRECOSE PO SCH (17:23)
--- NOTE | 2019-03-23 02:48 | DISCHARGE SUMMARY ---
ADMISSION DATE: 03/21/2019 DISCHARGE DATE: 03/22/2019 PRIMARY CARE PHYSICIAN: None. ADMISSION DIAGNOSES: 1. Drug overdose unintentional for suicidal ideation. 2. Urinary tract infection with known kidney stones per her urologist. 3. Polysubstance abuse. 4. Diabetes type 2. DISCHARGE DIAGNOSIS: 1. Drug overdose unintentional for suicidal ideation. 2. Urinary tract infection with known kidney stones per her urologist. 3. Polysubstance abuse. 4. Diabetes type 2. SUMMARY OF FINDINGS: This is a 48-year-old female who presented to the emergency room after taking an unknown amount of oxycodone. States this was not an attempt to hurt herself but to control her pain. States she was diagnosed by her urologist, Dr. Alan, with a kidney stone recently, started on Macrobid 100 mg p.o. b.i.d. for 7 days and then 100 mg daily. We did give her a dose of Rocephin 1 gram IV in the emergency room. She was on IV hydration. She has now consented to be admitted to our [facility] so she will be discharged from a medical standpoint and she will transition into their program at this time. All discharge instructions have been reviewed with the patient and she verbalizes understanding. TIME SPENT: A 33 minute discharge. Dictated by FÉLIX White for Luis Rodriguez MD Addendum: Patient seen and examined by myself. Agree with FÉLIX note. It reflects my assessment and plan. Patient is being discharged from hospital in stable condition. Will be admitted to hospital under care of [facility]" [facility]. cc: FÉLIX White MD [facility]
[2019-03-23] MEDS: LIBRIUM PO SCH ×3 (04:27→17:51)
[2019-03-23] MEDS: SYNTHROID PO SCH ×2 (06:07→06:08)
[2019-03-23] MEDS: PROTONIX PO SCH (06:07)
[2019-03-23] MEDS: PRECOSE PO SCH ×3 (08:27→17:52)
[2019-03-23] MEDS: FOLIC ACID PO SCH (08:27)
[2019-03-23] MEDS: THERA M PLUS PO SCH (08:27)
[2019-03-23] MEDS: ROCEPHIN 1 GM in NS 50 ML IV SCH (08:28)
[2019-03-23] MEDS: VITAMIN B-1 PO SCH (08:28)
[2019-03-23] MEDS ORDERED: NON-FORMULARY MED (Omeprazole 40 MG) PO SCH (09:00)
--- NOTE | 2019-03-23 10:10 | PROGRESS NOTE ---
DATE: 03/23/2019 SUBJECTIVE: Patient notes that overall she is feeling a lot better. Denies any fevers, chills. Denies any nausea, vomiting. PHYSICAL EXAMINATION: Vital Signs: Reviewed and stable. General: She is awake, alert. She is in no distress. HEENT: Normocephalic. Neck: Supple. Cardiovascular: Regular rate. No murmurs. Chest: Clear. Nonlabored. Abdomen: Soft. Nondistended. Extremities: Moves all extremities. Neurologic: No focal changes. ASSESSMENT: 1. Nausea and vomiting. 2. Abdominal pain. 3. Myalgias. 4. Paresthesias. 5. Paroxysmal sweating. 6. Opiate abuse, withdrawal, and admit for stabilization. PLAN: We will continue the patient on Librium taper. Continue to follow. Further orders as needed. cc: Holger Eduardo MD
--- NOTE | 2019-03-23 14:47 | HISTORY AND PHYSICAL ---
CHIEF COMPLAINT: Abdominal pain, myalgias. HISTORY OF PRESENT ILLNESS: Patient is a 48-year-old female who unfortunately has a known history of overdose. She presented to the hospital stating that she had taken too many pain medication. She initially stated that she was taking the pain medication because her urologist would not give her pain medicine for her kidney stones that she makes recurrently although she did finally admit to taking too many pain medications. Initially she stated she only took 1 Roxicodone 30 mg and she was unaware of how strong it was. After a lengthy discussion of how it would be quite unusual for a single Roxicodone 30 mg to almost bring about respiratory suppression to point of that she had to be given Narcan to recover patient did reluctantly admit to maybe it was more than 1. SOCIAL HISTORY: Patient is on disability lives at home in [place], she is . PAST MEDICAL HISTORY: Recurrent kidney stones, recurrent hypoglycemia, seizures, history gastric bypass in 2002, she overdosed on opiates on March 18 and again on March 21, history of alcohol abuse but stopped earlier in March had been drinking since age 46, chronic anxiety, depression, history of concussions, history of iron deficiency anemia, history of peptic ulcer disease, recurrent pneumonia . MEDICATIONS: No current prescription medications. ALLERGIES: No known drug allergies but has been warned about tramadol due to lower seizure threshold. REVIEW OF SYSTEMS: CIWA score is 41 secondary to moderately anxious, restless, nervous, confusion, tremors, nausea, sensitivity light, headaches, hallucinations, 2 overdoses in the past month. Denies any focalized numbness, tingling, weakness in her extremities, denies any dysuria, frequency, or urgency, denies hesitancy, polyuria, polydipsia. Denies skin rashes, weight loss or weight gain. Denies any dysuria, frequency, denies hesitancy, polyuria or polydipsia. Denies focalized numbness, tingling, weakness in her extremities. SUBSTANCE ABUSE HISTORY: The patient was in [facility] in 2016, she has overdosed March 18 as well as March 21. She has other history of overdoses as well. Started drinking at 46 states she stopped earlier in March. Started Xanax at 38. States she is given one 3 times a day but she takes at least 3 or 4 every night altogether. Started stimulants at age 46. Has been taking Adderall as prescribed. Started opiates at 26. States she had recurrent kidney stones for which she takes. Notes that she has taken more than 5 [*] 7 hydrocodone in a day and recently has been taking several Roxicodone. FAMILY HISTORY: Noncontributory. PHYSICAL EXAMINATION: Vital signs reviewed and stable. Patient is currently awake, she is alert, she is difficult to concentrate has to be redirected to answer questions. HEENT: Normocephalic. NECK: Supple. CV: Regular rate, no murmurs. CHEST: Clear, nonlabored. No wheezing. ABDOMEN: Soft, nondistended. EXTREMITIES: Moves all extremities. NEURO: No focal changes. SKIN: Warm, dry, no rashes. LABS: Reviewed. ASSESSMENT: 1. Nausea, vomiting. 2. Abdominal pain. 3. Myalgias. 4. Paresthesias. 5. Paroxysmal sweating. 6. Tremors. 7. Two recent overdoses requiring Narcan in the past 2 weeks. 8. History of polysubstance use and abuse. PLAN: Will admit patient to the hospital through [facility], place her on Librium taper, continue to follow, continue counseling. cc: Holger Eduardo MD
[2019-03-24] MEDS: LIBRIUM PO SCH ×4 (02:03→21:28)
[2019-03-24] MEDS: SYNTHROID PO SCH ×2 (06:15)
[2019-03-24] MEDS: PROTONIX PO SCH (06:16)
[2019-03-24] MEDS: FOLIC ACID PO SCH (08:01)
[2019-03-24] MEDS: VITAMIN B-1 PO SCH (08:02)
[2019-03-24] MEDS: THERA M PLUS PO SCH (08:02)
[2019-03-24] MEDS: PRECOSE PO SCH ×3 (08:02→16:24)
[2019-03-24] MEDS: ROCEPHIN 1 GM in NS 50 ML IV SCH (08:16)
--- NOTE | 2019-03-24 10:01 | PROGRESS NOTE ---
DATE: 03/24/2019 SUBJECTIVE: Patient states that she is feeling a little bit better. Still gets anxious and nervous at times. Denies any chest pain or palpitations. Denies fevers or chills. PHYSICAL EXAMINATION: Vital Signs: Reviewed. She is afebrile. Pulse in the 80s, although sometimes 120s, respiratory rate 20. General: Patient is awake, alert. She is in no distress. HEENT: Normocephalic. Neck: Supple. Cardiovascular: Regular rate. No murmurs. Chest: Clear and nonlabored. Abdomen: Soft. Extremities: Moves all extremities. Neurologic: No focal changes. ASSESSMENT: 1. Nausea and vomiting. 2. Abdominal pain. 3. Supraventricular tachycardia. Unsure if this is due to withdrawal symptoms or anxiety. Appears to be more related to anxiety. 4. Polysubstance use and abuse, and withdrawal. PLAN: We will continue patient in the hospital, continue counseling, continue to wean Librium. Hopefully home over the next 1 or 2 days. cc: Holger Eduardo MD
[2019-03-24 10:08] LABS: HEMATOCRIT 29.8 % (37.0-47.0); HEMOGLOBIN 9.7 g/dL (12.0-16.0); MCH 29.2 PG (27-31); MCHC 32.6 g/dL (33-37); MCV 89.8 FL (81-99); MPV 11.5 FL (7.4-10.4); RBC 3.32 XMIL (4.2-5.4); RDW 12.1 % (11.5-14.5); WBC 2.57 X1000 (4.8-10.8)
[2019-03-24 10:36] LABS: AGAP 10; ALBUMIN 3.1 g/dL (3.5-5.0); ALKALINE PHOSPHATASE 84 U/L (32-104); BUN 11 mg/dL (8-22); CALCIUM 8.4 mg/dL (8.8-10.2); CHLORIDE 107 mmol/L (98-107); COSMO 287; CREATININE 0.4 mg/dL (0.5-0.9); ESTIMATED GFR > 60; GLUCOSE 78 mg/dL (70-104); GOT 13 U/L (10-30); GPT 14 U/L (10-36); MAGNESIUM 1.5 mg/dL (1.5-2.7); POTASSIUM 3.7 mmol/L (3.5-5.1); SODIUM 145 mmol/L (136-145); TCO2 29 mmol/L (25-35); TOTAL PROTEIN 5.2 g/dL (6.3-8.3)
[2019-03-25] MEDS: PROTONIX PO SCH (06:13)
[2019-03-25] MEDS: SYNTHROID PO SCH ×2 (06:13)
[2019-03-25] MEDS: LIBRIUM PO SCH (06:13)
[2019-03-25 07:34] VITALS: BP 113/47
[2019-03-25] MEDS: THERA M PLUS PO SCH (08:04)
[2019-03-25] MEDS: PRECOSE PO SCH (08:05)
[2019-03-25] MEDS: FOLIC ACID PO SCH (08:05)
[2019-03-25] MEDS: VITAMIN B-1 PO SCH (08:05)
[2019-03-25] MEDS ORDERED: OMNICEF PO SCH (09:00)
--- NOTE | 2019-03-25 09:01 | Diag Imaging Result Doc PS360 ---
[facility] ABDOMEN - 03/25/2019 INDICATION: history of renal stone COMPARISON: 03/17/2019 FINDINGS: There has been resolution of the constipation. There is an average amount of stool now. No bowel obstruction or free air. No abnormal calcifications. IMPRESSION: No acute disease. Electronically signed by Trae Ford 03/25/2019 8:59 AM
[2019-03-25] MEDS ORDERED: LIBRIUM PO SCH (18:00)
--- NOTE | 2019-03-30 04:41 | DISCHARGE SUMMARY ---
ADMISSION DATE: 03/21/2019 DISCHARGE DATE: 03/25/2019 DISCHARGE DIAGNOSES: 1. Nausea, vomiting. 2. Abdominal pain. 3. Myalgias. 4. History of renal stone. 5. Chronic pain. 6. Chronic migraines. 7. History of seizures. 8. Diabetes. 9. Recent intentional drug overdose. 10. History of urinary tract infection although her recent urine culture was negative. 11. Chronic, recurrent, and continued renal stones per the patient, although her repeat scan in the hospital was negative for stone. 12. Polysubstance use and abuse. CONSULTATIONS: None. PROCEDURES: None. BRIEF HOSPITAL COURSE: The patient is a 48-year-old female who presented to the hospital after a 2nd drug overdose in the past few weeks. She was initially admitted to the ICU and stabilized and then transition to the floor. We placed her on Suboxone and continued to wean her down. Each day patient was highly invested in having kidney stones and a current urinary infection. She was placed on antibiotics until her urine culture was negative and therefore the antibiotics were stopped. She thankfully had an uneventful hospital course and was ruled out for recurrent kidney stone. DISPOSITION: The patient will be discharged home. Discussed with her that she needs to follow up outpatient with treatment facility of choice. Discussed that she does not currently have a kidney stone nor a urinary infection. Discussed that she does not currently need antibiotics nor medications for a urinary infection or a kidney stone. Discussed that she needs outpatient life counseling as well as drug counseling. She needs to avoid persons, places, situations in which she has been using and abusing in the past. Greater than 30 minutes spent in total care. cc: Holger Eduardo MD
== END 2019-03-25 11:29 | disposition home or self-care (01) | DRG 918 ==
LOC: P.ED 18:20 → P.ICU 23:40 → P.MEDSURG 03-22 15:23
PROVIDERS: ADMIT Family Medicine; ATTEND Family Medicine
CPT/HCPCS: 51702; 70450; 71020; 71046; 74000; 74018; 80053; 80104; 80301; 80305; 80307; 80320; 80324; 80329; 81001; 82003; 82055; 82948; 83735; 85025; 85027; 87088; 93005; 96361; 96374; 96375; 99285; A9270; G0431; G0434; G0477; G0480; G6039; G6040; J0696; J2310; J2405; J7030; XXXXX